=== PATIENT | female | born 1990 | race Two or more races ===

== ENCOUNTER 2016-09-02 02:52 | Inpatient (IN) ==
[2016-09-02] MEDS ORDERED: ONDANSETRON 4 MG/2 ML VIAL IV PRN (03:14)
[2016-09-02] MEDS ORDERED: ePHEDrine 50 MG/ML AMP IV PRN (03:15)
[2016-09-02] MEDS ORDERED: FAMOTIDINE 20 MG/2 ML VIAL IV ONE (03:15)
[2016-09-02] MEDS ORDERED: diphenhydrAMINE 50 MG/1 ML VIAL IV PRN ×2 (03:15)
[2016-09-02] MEDS ORDERED: fentaNYL 2 MCG/ROPIV 0.2% EPID 150 ML EPIDURAL SCH (03:15)
[2016-09-02] MEDS ORDERED: hydrOXYzine HCL 25 MG/1 ML VIAL IM PRN (03:15)
[2016-09-02] MEDS ORDERED: PROMETHAZINE 25 MG/1 ML VIAL IM ONE (03:15)
[2016-09-02] MEDS ORDERED: LACTATED RINGERS 1,000 ML IV ONE (03:15)
[2016-09-02] MEDS ORDERED: CITRIC ACID/SODIUM CITRATE 30 ML UDCUP PO ONE (03:15)
[2016-09-02] MEDS ORDERED: AMPICILLIN INJ 2,000 MG in SODIUM CHLORIDE 0.9% 100 ML IV ONE (03:17)
[2016-09-02] MEDS ORDERED: AMPICILLIN 2,000 MG VIAL ONE (03:20)
[2016-09-02] MEDS ORDERED: SODIUM CHLORIDE 0.9% 100 ML IV ONE (03:20)
[2016-09-02] MEDS: BUTORPHANOL 2 MG/ML VIAL IV PRN ×2 (03:29→09:02)
[2016-09-02 03:45] LABS: Basophils % 0.3 % (0.0-0.8); Eosinophils % 0.3 % (0.00-10.9); Hematocrit 24.3 VOL% (35.7-47.0); Hemoglobin 7.5 GM/DL (12.0-16.0); Immature Granulocytes % 0.6 %; Immature Granulocytes Absolute 0.06 #; Lymphocytes # 2.4 10*3/uL (1.4-4.0); Lymphocytes % 23.2 % (21.3-54.2); Mean Corpuscular HGB Conc 30.9 GM/DL (32-36); Mean Corpuscular Hemoglobin 23 PG (27-34); Mean Corpuscular Volume 75.9 FL (87-102); Mean Platelet Volume 9.8 FL (9.6-12.0); Monocytes # 0.8 10*3/uL (0.11-0.8); Monocytes % 7.9 % (1.7-12.7); NRBC # 0.03 10*3/uL; Neutrophils # 7.1 10*3/uL (1.4-7.4); Neutrophils % 67.7 % (38.7-73.9); Platelet Count 319 T/CUMM (130-400); Red Cell Distribution Width 17.3 % (9.3-17.3); White Blood Count 10.4 T/CUMM (4-12)
[2016-09-02] MEDS: LACTATED RINGERS 1,000 ML IV SCH ×2 (03:49→04:51)
[2016-09-02 04:04] LABS: Albumin 2.6 G/DL (3.4-5.0); Bilirubin,Total 0.4 MG/DL (0.2-1.0); Calcium 8.6 MG/DL (8.5-10.1); Osmolality,Calculated 276.5 MOS/KG (273-304); Total Protein 6.1 G/DL (6.4-8.3)
[2016-09-02 04:55] LABS: Apearance,Urine CLEAR (Clear); Bilirubin,Urine Negative (Negative); Blood, Urine Negative (Negative); Glucose,Urine (UA) Negative (Negative); Ketones,Urine 5 mg/dL (Negative); Nitrite,Urine Negative (Negative); Protein,Urine Negative; RBC,Urine <1 /HPF (0-4); Squamous Epithelial Cell,Urine Occasional /HPF (0-10); Urine Color Colorless (Yellow); Urine Specific Gravity 1.002 (1.001-1.035); Urine Urobilinogen < 2.0 EU/DL (0.2-1.0); WBC,Urine <1 /HPF (0-6)
[2016-09-02] MEDS ORDERED: OXYTOCIN/LR 20 UNIT/1,000 ML BAG IV SCH (06:30)
[2016-09-02] MEDS ORDERED: AMPICILLIN INJ 1,000 MG in SODIUM CHLORIDE 0.9% 100 ML IV SCH (07:30)
[2016-09-02] MEDS ORDERED: miSOPROStol 200 MCG TABLET ONE (07:32)
--- NOTE | 2016-09-02 09:54 | OB/GYN History & Physical ---
History of Present Illness Chief complaint: In active labor with spontaneous rupture of membranes History of present illness: Ms. Calloway is a 25 year old female who is a primigravida. Her RO is 09/09/2016 for an estimated gestational age of 39 weeks. She presented to the labor department with complaints of active labor and spontaneous rupture membranes. The risk and benefits were thoroughly discussed with the patient and significant on the plan of care was discussed with Dr. Sifuentes and all parties were in agreement plan. The patient is and has a language barrier, however her is her mirror framer. The patient received her care through the [facility], she received routine care throughout, her course was uneventful. labs: She is A positive, RPR is nonreactive, hepatitis B negative, HIV negative, rubella is immune, GBS culture is positive. Home Medications Medication Instructions Recorded Confirmed Type Pnv No.95/Ferrous Fum/Folic AC 1 mg PO DAILY 08/02/16 09/02/16 History [ Tablet] Allergies Allergy/AdvReac Type Severity Reaction Status Date / Time No Known Allergies Allergy Verified 08/02/16 08:25 12 point system: reviewed and no additional remarkable complaints except as stated Medical,Surgical,& Family Hx - Medical History Medical History: noncontributory Hematology: History of: Anemia Other: No history of: Anesthesia Reactions, Anaphylaxis - Surgical History Surgical History: noncontributory Cardiac Surgeries: Patient Denies: Cardiac Catheterization Thoracic Surgeries: Patient denies;: Organ Transplant, Lobectomy Neurologic Surgeries: Patient denies: Neurologic Surgery - Family History Family History: Reports;: Family Cancer (uncle on mom side), Family Diabetes (g mom momside), Family Stroke (gmom momside) Denies;: Family Anesthesia Reaction, Family Heart Disease, Family Hematology , Family Hypertension, Family Psychiatric Problems, Additional Family History - Social History Smoking Status: Never smoker Frequency of Alcohol Use: None Type of Drug Use: None Marital Status: Lives With:: Spouse Functional capacity: 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 - Constitutional Vitals: Vital Signs Temp Pulse Resp BP Pulse Ox 09/02/16 09:35 97.6 F 09/02/16 07:48 97.8 F 09/02/16 04:39 97.6 F 80 18 118/62 99 09/02/16 04:00 97.7 F 65 18 127/73 97 General appearance: mild distress - Antepartum / Post Antepartum Exam Cervix - Dilatation: Upon admission the patient was 2 cm dilated Effacement: 100% effaced Station: 0 stage Rupture: Spontaneous rupture Presentation: Vertex Heart Rate: 160 Abdomen obstetrics: Present: bowel sounds normal Vagina: Present: discharge (Bloody show) Uterus exam: Present: enlarged - Respiratory Respiratory exam: Present: clear to auscultation bilaterally - Cardiovascular Cardiovascular exam: Present: regular rate and rhythm - GI/Abdominal GI/Abdominal exam: Present: normal bowel sounds, soft - Extremities Exam Extremities exam: Present: normal inspection - Back Exam Back exam: Present: normal inspection - Neurological Exam Neurological exam: Present: alert, oriented X3 - Psychiatric Psychiatric exam: Present: normal affect, normal mood - Skin Skin exam: Present: normal color, warm Assessment and Plan (1) Active labor at term Status: Acute Assessment and plan: Admit IV fluids IV Pitocin per protocol IV antibiotics prophylactically for positive GBS Epidural Anticipate Current Visit: Yes (2) Vaginal delivery Status: Acute Assessment and plan: Initiate routine orders. Current Visit: Yes Results - Labs CBC & BMP: 09/02/16 03:20 09/02/16 03:20
[2016-09-02] MEDS ORDERED: BENZOCAINE 20%/MENTHOL 0.5% SPRAY 56 GM CAN TOP PRN (10:02)
[2016-09-02] MEDS ORDERED: HYDROCORTISONE 2.5% RECTAL CREAM 30 GM TUBE TOP PRN (10:02)
[2016-09-02] MEDS ORDERED: BISACODYL 10 MG SUPP RECTAL PRN (10:02)
[2016-09-02] MEDS ORDERED: ACETAMINOPHEN 325 MG TABLET PO PRN (10:02)
[2016-09-02] MEDS ORDERED: WITCH HAZEL PADS 100/JAR TOP PRN (10:02)
[2016-09-02] MEDS ORDERED: LANOLIN 50% CREAM 0.3 OZ TUBE TOP PRN (10:02)
[2016-09-02] MEDS ORDERED: OXYTOCIN/LR 20 UNIT/1,000 ML BAG IV ONE (10:02)
--- NOTE | 2016-09-02 10:02 | Event Note ---
HPI: The patient presented to the labor department with complaints of painful regular uterine contractions and spontaneous rupture membranes. She was admitted for management of active labor. The risk and benefits were thoroughly discussed with the patient significant other and plan of care was discussed with Dr. Sifuentes, all parties were in agreement plan. Stage I: The patient was admitted and received IV fluids and IV Pitocin per protocol. She had experienced spontaneous rupture membranes with clear fluid noted. The patient progressed in labor with a CAT 1 tracing. She also received IV antibiotics prophylactically for a positive GBS culture. Otherwise the patient had an uneventful course of labor. Stage II: The patient was complete and complained of pressure and desire to push. She pushed for approximately 30 minutes after which time it was noted that the infant needed more room for delivery. Therefore a second-degree midline episiotomy was performed. The patient pushed a couple more times after which time the infant's head was delivered, the mouth and nose were suctioned on the perineum. The remainder the was delivered at 846, a viable female was noted. There was also some meconium staining noted at the termination of the delivery. The infant was thoroughly suctioned out a few more seconds prior to cord clamp. Apgars were 9 at 1 minute and 9 at 5 minutes. weight was 8 pounds. After thorough examinations from the nurse the infant was placed on the mom's abdomen for skin to skin bonding. Stage III: A spontaneous delivery of a García placenta with three-vessel cord noted. The placenta was further examined and appear to be grossly intact with the exception of a light meconium staining. The vagina cervix was inspected with no additional tears or lacerations noted. The episiotomy was repaired in the usual fashion epidural remain in effect on repair also 1% lidocaine was utilized to anesthetize the area as well. The patient tolerated the procedure well. Estimated blood loss was approximately 150 cc. At the time of dictation mother and baby both in stable condition.
[2016-09-02] MEDS ORDERED: ACETAMINOPHEN/CODEINE 300-30 MG TABLET PO PRN (10:04)
[2016-09-02] MEDS ORDERED: RHO(D) IMMUNE GLOBULIN 300 MCG SYRINGE IM ONE (10:30)
[2016-09-02] MEDS ORDERED: DIPH/TET/ACEL PERT BOOSTER VACCINE 0.5 ML VIAL IM ONE (10:30)
[2016-09-02] MEDS ORDERED: MEASLES/MUMPS/RUBELLA VACCINE 0.5 ML VIAL SUBCUT ONE (10:30)
[2016-09-02] MEDS: IBUPROFEN 800 MG TABLET PO PRN ×2 (12:43→18:05)
[2016-09-02] MEDS: oxyCODONE/ACETAMINOPHEN 5-325 MG TABLET PO PRN ×2 (12:43→20:05)
[2016-09-02] MEDS: FERROUS SULFATE 325 MG TABLET PO SCH ×2 (13:48→20:05)
[2016-09-02] MEDS: DOCUSATE SODIUM 100 MG CAPSULE PO SCH (20:05)
[2016-09-02 22:22] LABS: Basophils % 0.1 % (0.0-0.8); Eosinophils # 0.1 10*3/uL (0.0-0.87); Eosinophils % 0.5 % (0.00-10.9); Hematocrit 22.2 VOL% (35.7-47.0); Hemoglobin 6.7 GM/DL (12.0-16.0); Immature Granulocytes % 0.4 %; Immature Granulocytes Absolute 0.04 #; Lymphocytes # 2.2 10*3/uL (1.4-4.0); Lymphocytes % 20.5 % (21.3-54.2); Mean Corpuscular HGB Conc 30.2 GM/DL (32-36); Mean Corpuscular Hemoglobin 23 PG (27-34); Mean Corpuscular Volume 76.6 FL (87-102); Mean Platelet Volume 10.2 FL (9.6-12.0); Monocytes % 9.2 % (1.7-12.7); Neutrophils # 7.5 10*3/uL (1.4-7.4); Neutrophils % 69.3 % (38.7-73.9); Platelet Count 277 T/CUMM (130-400); Red Cell Distribution Width 17.6 % (9.3-17.3); White Blood Count 10.8 T/CUMM (4-12)
[2016-09-02] MEDS ORDERED: SODIUM CHLORIDE 0.9% 250 ML IV PRN (22:34)
[2016-09-03] MEDS: oxyCODONE/ACETAMINOPHEN 5-325 MG TABLET PO PRN ×3 (06:27→21:21)
[2016-09-03] MEDS: IBUPROFEN 800 MG TABLET PO PRN ×2 (06:27→13:30)
[2016-09-03] MEDS: DOCUSATE SODIUM 100 MG CAPSULE PO SCH ×2 (09:36→21:20)
[2016-09-03] MEDS: FERROUS SULFATE 325 MG TABLET PO SCH ×2 (09:36→21:20)
[2016-09-03 11:08] LABS: Hematocrit 32.3 VOL% (35.7-47.0)
[2016-09-03 11:13] LABS: Hemoglobin 10.6 GM/DL (12.0-16.0)
--- NOTE | 2016-09-03 12:32 | OB/GYN Progress Note ---
Assessment and Plan (1) Active labor at term Status: Acute Assessment and plan: Admit IV fluids IV Pitocin per protocol IV antibiotics prophylactically for positive GBS Epidural Anticipate Current Visit: Yes (2) Vaginal delivery Status: Acute Assessment and plan: Initiate routine orders. 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 Bonding well with . Exam SEPARATOR TENDER - Constitutional Vitals: Vital Signs Temp Pulse Pulse Resp BP BP Pulse Ox 09/03/16 11:39 98.7 F 55 L 20 143/84 09/03/16 11:37 20 09/03/16 10:00 20 09/03/16 09:45 97.8 F 60 18 124/68 99 09/03/16 08:00 98.0 F 53 L 18 122/63 09/03/16 07:54 98.0 F 53 L 18 122/63 98 09/03/16 06:50 98.3 F 55 L 18 112/72 09/03/16 06:24 98 F 69 18 154/95 09/03/16 06:19 98.2 F 59 L 20 129/97 09/03/16 06:14 98.8 F 63 20 124/81 09/03/16 06:07 98.2 F 62 18 142/91 09/03/16 05:15 98.7 F 65 18 129/76 09/03/16 04:15 97.6 F 61 18 102/67 09/03/16 04:00 20 09/03/16 03:45 96.7 F L 55 L 20 102/67 09/03/16 03:40 96.8 F L 56 L 18 97/65 09/03/16 03:35 96.7 F L 54 L 18 96/64 09/03/16 03:25 97.9 F 64 20 122/94 09/03/16 02:19 98.9 F 62 16 117/65 09/03/16 02:00 20 09/03/16 01:19 99 F 60 20 112/74 09/03/16 00:49 98.4 F 60 20 110/74 09/03/16 00:48 98.4 F 60 20 110/74 09/03/16 00:44 98.5 F 62 18 109/64 09/03/16 00:39 99.3 F 59 L 18 108/68 09/03/16 00:32 98.3 F 67 18 113/71 100 09/03/16 00:00 98.3 F 67 18 113/71 09/02/16 20:00 98.7 F 55 L 18 126/80 09/02/16 18:00 20 09/02/16 16:00 20 09/02/16 15:15 97.7 F 55 L 18 145/83 09/02/16 14:15 52 L 18 137/65 09/02/16 14:00 20 09/02/16 13:15 55 L 18 137/65 09/02/16 12:45 62 18 121/74 Pulse Ox 09/03/16 11:39 98 09/03/16 11:37 09/03/16 10:00 09/03/16 09:45 09/03/16 08:00 98 09/03/16 07:54 09/03/16 06:50 09/03/16 06:24 09/03/16 06:19 09/03/16 06:14 09/03/16 06:07 09/03/16 05:15 09/03/16 04:15 09/03/16 04:00 09/03/16 03:45 09/03/16 03:40 09/03/16 03:35 09/03/16 03:25 09/03/16 02:19 09/03/16 02:00 09/03/16 01:19 09/03/16 00:49 09/03/16 00:48 09/03/16 00:44 09/03/16 00:39 09/03/16 00:32 09/03/16 00:00 99 09/02/16 20:00 99 09/02/16 18:00 09/02/16 16:00 09/02/16 15:15 98 09/02/16 14:15 98 09/02/16 14:00 09/02/16 13:15 98 09/02/16 12:45 98 General appearance: no acute distress - Antepartum / Post Post Exam Breast: bilateral: normal Abdomen obstetrics: Present: bowel sounds normal Vagina: Present: normal moisture, discharge (light lochia rubra) Uterus exam: Present: enlarged (FF ML) Anus/Rectum: Present: normal perianal skin - Respiratory Respiratory exam: Present: clear to auscultation bilaterally - Cardiovascular Cardiovascular exam: Present: regular rate and rhythm - GI/Abdominal GI/Abdominal exam: Present: normal bowel sounds, soft - Extremities Exam Extremities exam: Present: normal inspection - Neurological Exam Neurological exam: Present: alert, oriented X3 - Psychiatric Psychiatric exam: Present: normal affect, normal mood - Skin Skin exam: Present: normal color, warm Results - Labs CBC & BMP: 09/03/16 11:01 09/02/16 03:20
[2016-09-03] MEDS ORDERED: FLUTICASONE 50 MCG NASAL SPRAY 16 GM BOTTLE BOTH NARES SCH (21:00)
[2016-09-04] MEDS: IBUPROFEN 800 MG TABLET PO PRN ×2 (00:23→11:38)
[2016-09-04] MEDS: oxyCODONE/ACETAMINOPHEN 5-325 MG TABLET PO PRN ×2 (05:28→11:39)
[2016-09-04] MEDS: DOCUSATE SODIUM 100 MG CAPSULE PO SCH (08:18)
[2016-09-04] MEDS: FERROUS SULFATE 325 MG TABLET PO SCH (08:18)
--- NOTE | 2016-09-04 09:24 | Anesthesia Post-Op ---
Anesthesia Post OP - Post Ansesthetic Evaluation Patient seen in post op: Yes Resp: within normal limits CV: within normal limits Mental: within normal limits Temp: within normal limits [id number]: within normal limits Nausea and Vomiting: within normal limits Pain: within normal limits
[2016-09-04 11:43] VITALS: BP 133/87
--- NOTE | 2016-10-24 02:11 | Discharge Summary ---
DATE OF ADMISSION: 09/02/2016 DATE OF DISCHARGE: 09/04/2016 The patient was approximately 39 weeks gestation admitted with spontaneous rupture of membranes. She subsequently progressed in labor and delivered a viable with meconium stain. Fetus was sucti oned at the time of delivery without any major complaints and she underwent episiotomy. The episioto my is repaired thoroughly without complications. She delivered a liveborn female 8 pounds. Apgars o f 9 at 1 minute and 9 at 5 minutes, remained in the hospital for two days without any comp lications, was subsequently discharged and followup in our office in six weeks.
== END 2016-09-04 15:00 | disposition home or self-care (01) | DRG 775 ==
LOC: N.LDOUT 02:52 → N.LD 02:53 → N.OB 11:46
PROVIDERS: ADMIT Obstetrics & Gynecology; ATTEND Obstetrics & Gynecology